=== PATIENT | female | born 1960 | race Caucasian/White ===

== ENCOUNTER 2016-09-27 21:55 | Observation (INO) | payer OTHER ==
[2016-09-27 22:00] VITALS: BMI 24.5
[2016-09-27 22:05] VITALS: TEMP 97.9
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
[2016-09-27] MEDS ORDERED: Sodium Chloride 0.9% 1,000 ML IV SCH (22:30)
[2016-09-27 22:56] LABS: ADD MANUAL DIFF? NO
[2016-09-27 23:01] LABS: BASO # 0.01 K/mm3 (0.0-2.0); BASO % 0.2 % (0.0-3.0); EOS # 0.1 (0.0-0.7); GRAN % 31.9 % (50.0-68.0); HEMATOCRIT 42.8 % (36.0-48.0); LYMPH # 3.2 (1.2-3.4); LYMPH % 53.1 % (22.0-35.0); MEAN CELL VOLUME 91.3 fL (80.0-105.0); MEAN CORPUSCULAR HEMOGLOBIN 32.4 pg (25.0-35.0); MEAN CORPUSCULAR HGB CONC 35.5 g/dl (31.0-37.0); MONO # 0.8 (0.1-0.6); MONO % 13.8 % (1.0-6.0); PH,URINE 5.5 (4.7-8.0); PLATELET COUNT 198 10^3/uL (120.0-450.0); RED CELL DISTRIBUTION WIDTH 12.3 % (11.5-14.5); URINE BILIRUBIN NEGATIVE (NEGATIVE); URINE BLOOD SMALL (NEGATIVE); URINE GLUCOSE (UA) NEGATIVE (NEGATIVE); URINE KETONE NEGATIVE (NEGATIVE); URINE LEUKOCYTE ESTERASE NEGATIVE Leu/uL (NEGATIVE); URINE PROTEIN NEGATIVE mg/dL (<30 mg/dL); URINE UROBILINOGEN 0.2 E.U./dL (<1 E.U./dL)
[2016-09-27 23:02] LABS: URINE APPEARANCE CLEAR (CLEAR); URINE COLOR YELLOW (YELLOW)
[2016-09-27 23:04] LABS: URINE AMORPHOUS SEDIMENT FEW; URINE BACTERIA SMALL (NEG); URINE WBC 0 - 2 /hpf (0-6)
[2016-09-27 23:14] LABS: ALB/GLOB RATIO 1.4 (1.1-1.8); ALKALINE PHOSPHATASE 108 U/L (38-133); ALT/SGPT 114 U/L (7-56); AMYLASE 120 U/L (35-125); AST/SGOT 100 U/L (15-39); BILIRUBIN,TOTAL 0.4 mg/dL (0.2-1.3); BLOOD UREA NITROGEN 7 mg/dL (7-21); CALCIUM 9.1 mg/dL (8.4-10.5); CARBON DIOXIDE 21 mmol/L (21-33); CHLORIDE 107 mmol/L (98-107); GFR AFRICAN-AMERICAN > 60; GLUCOSE,RANDOM 89 mg/dL (70-110); LIPASE 249 U/L (23-300); POTASSIUM 3.5 mmol/L (3.6-5.0); SODIUM 145 mmol/L (132-148); TOTAL PROTEIN 8.8 g/dL (5.8-8.3)
[2016-09-27 23:16] LABS: INR 0.94 (0.93-1.08); PARTIAL THROMBOPLASTIN TIME 29.2 Seconds (23.7-30.8)
[2016-09-27 23:37] LABS: TROPONIN I < 0.01 ng/mL
[2016-09-28 00:17] LABS: VENOUS BLOOD GAS BASE EXCESS -3.8 mmol/L (0.0-2.0); VENOUS BLOOD PH 7.33 (7.32-7.43)
[2016-09-28 06:19] VITALS: BP 106/56; PULSE 88; RESP 16; O2SAT 98
--- NOTE | 2016-09-28 09:27 | RAD ---
HISTORY: cp COMPARISON: 12/21/2014 FINDINGS: LUNGS: No active pulmonary disease. PLEURA: No significant pleural effusion identified, no pneumothorax apparent. CARDIOVASCULAR: Normal. OSSEOUS STRUCTURES: No significant abnormalities. VISUALIZED UPPER ABDOMEN: Normal. OTHER FINDINGS: None. IMPRESSION: No active disease.
--- NOTE | 2016-09-28 12:07 | CARD ---
APPROVED REPORT EKG Measurement Heart [id number] <Conclusion> Normal sinus rhythm Possible Left atrial enlargement Borderline ECG
== END 2016-09-28 06:35 | disposition home or self-care (01) ==
LOC: ED 21:55 → EROBSV 23:06
PROVIDERS: ADMIT Emergency Medicine; ATTEND Emergency Medicine
DX: F10.10 Alcohol abuse, uncomplicated (principal); Y90.8 Blood alcohol level of 240 mg/100 ml or more
CPT/HCPCS: 71010; 80053; 80320; 81001; 82150; 82550; 82803; 83615; 83690; 84484; 85025; 85610; 85730; 87040; 87086; 93005; 96374; 96375; 99284; C9113; G0378; J2405; J7040

== ENCOUNTER 2016-10-20 21:58 | Observation (INO) | payer OTHER ==
[2016-10-20 21:59] VITALS: BMI 24.5
[2016-10-20 22:04] VITALS: TEMP 98.2
[2016-10-20] MEDS ORDERED: Albuterol-Ipratrop 3 mg / 0.5 (3 ml) UD IH STA (22:12)
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
[2016-10-20 22:45] LABS: HEMATOCRIT 40.3 % (36.0-48.0); MEAN CELL VOLUME 91.2 fL (80.0-105.0); MEAN CORPUSCULAR HEMOGLOBIN 31.2 pg (25.0-35.0); MEAN CORPUSCULAR HGB CONC 34.2 g/dl (31.0-37.0); MEAN PLATELET VOLUME 8.5 fl (7.0-11.0); RED CELL DISTRIBUTION WIDTH 11.9 % (11.5-14.5); WHITE BLOOD COUNT 5.7 10^3/ul (4.5-11.0)
[2016-10-20 22:54] LABS: ALB/GLOB RATIO 1.3 (1.1-1.8); ALKALINE PHOSPHATASE 77 U/L (38-133); ALT/SGPT 59 U/L (7-56); AST/SGOT 68 U/L (15-39); BILIRUBIN,TOTAL 0.6 mg/dL (0.2-1.3); BLOOD UREA NITROGEN 3 mg/dL (7-21); CALCIUM 8.9 mg/dL (8.4-10.5); CARBON DIOXIDE 22 mmol/L (21-33); CHLORIDE 103 mmol/L (98-107); GFR AFRICAN-AMERICAN > 60; GLUCOSE,RANDOM 87 mg/dL (70-110); POTASSIUM 3.3 mmol/L (3.6-5.0); SODIUM 139 mmol/L (132-148); TOTAL PROTEIN 7.8 g/dL (5.8-8.3)
[2016-10-21] MEDS ORDERED: Potassium Chloride 20 mEq ER Tab PO STA (03:52)
[2016-10-21 06:28] VITALS: O2SAT 97
[2016-10-21 07:59] VITALS: RESP 17
[2016-10-21 09:52] VITALS: BP 106/67; PULSE 78
--- NOTE | 2016-10-21 17:37 | CARD ---
APPROVED REPORT EKG Measurement Heart [id number] <Conclusion> Normal sinus rhythm Normal ECG
== END 2016-10-21 09:42 | disposition home or self-care (01) ==
LOC: ED 21:58 → EROBSV 22:30
PROVIDERS: ADMIT Emergency Medicine; ATTEND Emergency Medicine
DX: J44.9 Chronic obstructive pulmonary disease, unspecified (principal); F10.10 Alcohol abuse, uncomplicated; Y90.8 Blood alcohol level of 240 mg/100 ml or more; Z72.0 Tobacco use
CPT/HCPCS: 80053; 80320; 85027; 93005; 99284; G0378

== ENCOUNTER 2016-11-26 18:28 | Emergency (ER) | payer OTHER ==
[2016-11-26 18:29] VITALS: BMI 24.5
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
[2016-11-26 20:15] VITALS: BP 147/88; PULSE 87; RESP 19; TEMP 97.9; O2SAT 99
--- NOTE | 2016-11-27 11:15 | CARD ---
APPROVED REPORT EKG Measurement Heart [id number] <Conclusion> Normal sinus rhythm Normal ECG
== END 2016-11-26 20:13 | disposition home or self-care (01) ==
LOC: ED 18:28
DX: F10.10 Alcohol abuse, uncomplicated (principal)

== ENCOUNTER 2017-04-01 15:57 | Emergency (ER) | payer OTHER ==
[2017-04-01 15:58] VITALS: BMI 24.5
[2017-04-01 16:10] VITALS: BP 119/74; PULSE 83; RESP 18; TEMP 98; O2SAT 96
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
== END 2017-04-01 16:57 | disposition home or self-care (01) ==
LOC: ED 15:57
DX: Z00.00 Encounter for general adult medical examination without abnormal findings (principal); F17.210 Nicotine dependence, cigarettes, uncomplicated

== ENCOUNTER 2017-11-04 22:03 | Emergency (ER) | payer OTHER ==
[2017-11-04 22:04] VITALS: BMI 24.5
== END 2017-11-05 00:08 | disposition left against medical advice (07) ==
LOC: ED 22:03
DX: Z02.89 Encounter for other administrative examinations (principal); F10.10 Alcohol abuse, uncomplicated

== ENCOUNTER 2018-01-20 16:36 | Emergency (ER) | payer OTHER ==
[2018-01-20 17:15] VITALS: BMI 24.1
[2018-01-20 17:20] VITALS: TEMP 98.2
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
--- NOTE | 2018-01-20 18:23 | RAD ---
Date of service: 01/20/2018 PROCEDURE: Radiographs of the Left Shoulder HISTORY: shoulder injury s/p mechanical fal COMPARISON: No prior. FINDINGS: BONES: There is no acute displaced fracture. Bone mineralization is normal. JOINTS: There is type 3 acromioclavicular separation with widening of acromioclavicular, coracoclavicular distance and superior displacement of the clavicle.. SOFT TISSUES: Normal. OTHER FINDINGS: None. IMPRESSION: Type 3 acromioclavicular separation. No acute fracture or dislocation.
--- NOTE | 2018-01-20 18:35 | CT ---
Date of service: 01/20/2018 PROCEDURE: CT HEAD WITHOUT CONTRAST. HISTORY: headache COMPARISON: Noncontrast head CT performed 05/24/13 TECHNIQUE: Axial computed tomography images were obtained through the head/brain without intravenous contrast. Radiation dose: Total exam DLP = 871.87 mGy-cm. This CT exam was performed using one or more of the following dose reduction techniques: Automated exposure control, adjustment of the mA and/or kV according to patient size, and/or use of iterative reconstruction technique. FINDINGS: HEMORRHAGE: No intracranial hemorrhage. BRAIN: No mass effect or edema. No atrophy or chronic microvascular ischemic changes. VENTRICLES: No hydrocephalus. CALVARIUM: Unremarkable. PARANASAL SINUSES: Unremarkable as visualized. No significant inflammatory changes. MASTOID AIR CELLS: Unremarkable as visualized. No inflammatory changes. OTHER FINDINGS: None. IMPRESSION: No acute intracranial pathology identified.
[2018-01-20 19:50] VITALS: BP 139/86; PULSE 72; RESP 14; O2SAT 100
== END 2018-01-20 19:49 | disposition home or self-care (01) ==
LOC: ED 16:36
DX: F10.10 Alcohol abuse, uncomplicated (principal)

== ENCOUNTER 2018-02-24 16:43 | Emergency (ER) | payer OTHER ==
[2018-02-24 16:52] VITALS: BMI 24.0
[2018-02-24] MEDS ORDERED: Albuterol-Ipratrop 3 mg / 0.5 (3 ml) UD IH STA (16:56)
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
[2018-02-24 17:29] VITALS: TEMP 98.6; O2SAT 98
[2018-02-24] MEDS ORDERED: Magnesium Sulfate 1 gm in D5W 1 GM/100 ML BAG IVPB ONE (17:32)
--- NOTE | 2018-02-24 17:36 | RAD ---
Date of service: 02/24/2018 HISTORY: Shortness of breath. COMPARISON: 09/27/2016. FINDINGS: LUNGS: No active pulmonary disease. PLEURA: No significant pleural effusion identified, no pneumothorax apparent. CARDIOVASCULAR: Atherosclerotic calcifications identified primarily aortic arch. No radiographic findings to suggest acute or significant cardiovascular disease. OSSEOUS STRUCTURES: No significant abnormalities. VISUALIZED UPPER ABDOMEN: Normal. OTHER FINDINGS: None. IMPRESSION: No active disease. No significant interval change compared to the prior examination(s).
[2018-02-24] MEDS ORDERED: Folic Acid 1 MG, Thiamine 100 MG, Multivitamin (MVI) 10 ML in Dextrose 5% In Water 1,00... IV SCH (19:15)
[2018-02-24 19:28] LABS: VENOUS BLOOD GAS BASE EXCESS -0.2 mmol/L (0.0-2.0); VENOUS BLOOD GAS PO2 50 mm/Hg (30-55); VENOUS BLOOD PH 7.33 (7.32-7.43)
[2018-02-24 19:41] LABS: ALB/GLOB RATIO 1.1 (1.1-1.8); ALBUMIN 4.5 g/dL (3.0-4.8); ALT/SGPT 44 U/L (7-56); AST/SGOT 48 U/L (14-36); BLOOD UREA NITROGEN 7 mg/dL (7-21); CALCIUM 9.2 mg/dL (8.4-10.5); GFR NON-AFRICAN AMERICAN > 60
[2018-02-24 19:48] LABS: BASO # 0.01 K/mm3 (0.0-2.0); BASO % 0.2 % (0.0-3.0); EOS % 0.4 % (1.5-5.0); GRAN # 2.71 (1.4-6.5); GRAN % 50.3 % (50.0-68.0); HEMOGLOBIN 14.2 g/dL (12.0-16.0); LYMPH # 1.7 (1.2-3.4); MEAN CELL VOLUME 92.5 fl (80.0-105.0); MEAN CORPUSCULAR HEMOGLOBIN 31.1 pg (25.0-35.0); MEAN CORPUSCULAR HGB CONC 33.6 g/dl (31.0-37.0); MEAN PLATELET VOLUME 8.9 fl (7.0-11.0); MONO # 0.9 (0.1-0.6); MONO % 17.1 % (1.0-6.0); RBC 4.56 10^6/uL (3.5-6.1); RED CELL DISTRIBUTION WIDTH 12.5 % (11.5-14.5); WHITE BLOOD COUNT 5.4 10^3/ul (4.5-11.0)
[2018-02-24 19:52] LABS: TROPONIN I < 0.01 ng/mL
[2018-02-24 19:56] LABS: URINE BILIRUBIN NEGATIVE (NEGATIVE); URINE BLOOD TRACE-INTACT (NEGATIVE); URINE GLUCOSE (UA) NEGATIVE (NEGATIVE); URINE LEUKOCYTE ESTERASE NEGATIVE Leu/uL (NEGATIVE); URINE PROTEIN NEGATIVE mg/dL (<30 mg/dL); URINE UROBILINOGEN 0.2 E.U./dL (<1 E.U./dL)
[2018-02-24 20:08] LABS: URINE APPEARANCE SL CLOUDY (CLEAR); URINE COLOR YELLOW (YELLOW)
[2018-02-24 20:28] LABS: URINE WBC 0 - 2 /hpf (0-6)
[2018-02-24 20:29] LABS: URINE BACTERIA MOD (NEG)
[2018-02-24 21:25] VITALS: BP 122/78; PULSE 88; RESP 16
== END 2018-02-24 21:24 | disposition home or self-care (01) ==
LOC: ED 16:43
DX: J44.1 Chronic obstructive pulmonary disease with (acute) exacerbation (principal); F10.10 Alcohol abuse, uncomplicated; Y90.6 Blood alcohol level of 120-199 mg/100 ml; F17.210 Nicotine dependence, cigarettes, uncomplicated
CPT/HCPCS: 71045; 80053; 80320; 81001; 82803; 83735; 84484; 85025; 85378; 96365; 96367; 96375; 99284; J2930; J3411; J3475; J7070